=== PATIENT | male | born 1930 | race Caucasian/White ===

== ENCOUNTER 2017-11-15 09:12 | Inpatient (IN) | payer MEDICARE, OTHER ==
--- NOTE | 2017-11-15 10:25 | ER Document Report ---
ED General - General Chief Complaint: Altered Mental Status Stated Complaint: ALTERED MENTAL STATUS Mode of Arrival: Medic Information source: Relative TRAVEL OUTSIDE OF THE [place] IN LAST 30 DAYS: No - HPI Notes: 87-year-old male with a history of hypertension, hyperlipidemia, prostate cancer incontinence depression presents to the ED via EMS for AMS via EMS with his son that son noticed this morning when woke up about a month. Son states that patient was unable to speak when he went into the room to see how his father is doing. Denies any travel, food or medications.States that patient was completely awake and alert and oriented yesterday speaking about sports. Son is not really sure about patient's medical history. Denies any recent falls , medications or foods. - Related Data Allergies/Adverse Reactions: No Known Allergies Allergy (Unverified 07/14/11 13:49) Past Medical History - Social History Smoking Status: Never Smoker Chew tobacco use (# tins/day): No Frequency of alcohol use: Occasional Drug Abuse: None Family History: Reviewed & Not Pertinent Patient has suicidal ideation: No Patient has homicidal ideation: No - Past Medical History Cardiac Medical History: Reports: Hx Hypertension Denies: Hx Coronary Artery Disease, Hx Heart Attack Pulmonary Medical History: Denies: Hx Asthma, Hx Bronchitis, Hx COPD, Hx Pneumonia Neurological Medical History: Denies: Hx Cerebrovascular Accident, Hx Seizures Renal/ Medical History: Denies: Hx Peritoneal Dialysis Musculoskeletal Medical History: 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 HEAD: Atraumatic, normocephalic. EYES: Pupils equal round and reactive to light, sclera anicteric, conjunctiva are normal. ENT: Nares patent, oropharynx clear without exudates. Moist mucous membranes. NECK: Normal range of motion, supple without lymphadenopathy LUNGS: Breath sounds clear to auscultation bilaterally and equal. No wheezes rales or rhonchi. HEART: Regular rate and rhythm without murmurs ABDOMEN: Soft, nontender, nondistended abdomen. No guarding, no rebound. No masses appreciated. Musculoskeletal: Normal range of motion, no pitting or edema. No cyanosis. NEUROLOGICAL: GCS 11. see neurological note PSYCH: Normal mood, normal affect. SKIN: Warm, Dry, normal turgor, no rashes or lesions noted. - Neurological Neuro grossly intact: Yes Cognition: Confused, Inattentive Orientation: Disoriented to person, Disoriented to place, Disoriented to time, Disoriented to events Sunny Coma Scale Eye Opening: Spontaneous Sunny Coma Scale Verbal: Incomprehensible Meeker Coma Scale Motor: Localizes to Pain Sunny Coma Scale Total: 11 Speech: Receptive aphasia Cerebellar coordination: Other - unable to follow commands Additional motor exam normals: Equal sweep molder Babinski reflex: Normal (flexor plantar) Sensory: Other - unable to communicate to me. Ventilator Specialist + 2 equal bilaterally in BUE when this provider welder/fabricator hands. Course - Re-evaluation Re-evalutation: Afebrile, vitals stable and altered 87-year-old male brought in by EMS with a GCS of 11. Temp is 97.8 patient unable to give history due to GCS, son is a poor historian. Ct head did show chronic changes of atrophy and microvascular ischemia, no acute stroke. Patient garbling, not making sense, will open eyes but is unable to follow any commands. Chest x-ray shows chronic changes, no acute findings. Patient pulling at lines and trying to get out of bed. CBC leukocytosis of the 11.3 which is elevated from the last 60. Creatinine is 1.37 which is elevated slightly from when he was seen here back in 2016 as well. EKG non-STEMI lactic is 9.3 troponin 0 0.016. Urinalysis negative for acute UTI. CK-MB is 1.39. 4048-[id number]-fkex activity witnessed by nurse and this provider at the very end, lasted approx 15 seconds where the patient was staring off and slight tremoring, resolved completely thereafter. No tonic- clonic jerking. Airway patent. Dr. Kaveh Reina, supervising ED attending, at bedside for bedside consult at the same time this provider came into room. Dr. Reina advised to start pt on 1500 mg IV as well as giving 1mg of Ativan IV. will obtain MRI of brain. daughter arrived at bedside who knows patient's history better at 1100. Daughter states that patient has had these "spells" over the last year and a half, states she thinks four "spells" in total. Reports where patient has these spells, he is altered all day, does not know anyone and his change in logical status can be altered for at least day and a half, but is never been "this bad" per the daughter. Patient was evaluated by his primary care provider after having a spell in the last 6 months, in which, per the daughter, the patient then received a CPAP machine for sleep apnea by his PCP. Daughter states that the primary care provider felt that this is what was causing his "spells". Patient has never been seen or evaluated by a neurologist. no history of dementia, Alzheimer's. MRI of brain without contrast showed atrophy and chronic microvascular ischemic changes, otherwise is a normal MRI of the brain. Consulted with hospitalist, Dr. Abhishek Cole, regarding seizure-like activity with altered mental status without any remarkable laboratory or diagnostic findings and is negative for acute stroke. Low suspicion for acute glaucoma, temporal arteritis, meningitis, intracranial hemorrhage, acute coronary syndrome, PE or ischemic stroke. patient has never been evaluated by seizure-like activity while he was in the emergency room, will admit for further evaluation to the [facility] to the medical service with consult to neurology. Patient's family was agreeable with this plan of care, verbalized understanding of this plan of care. All questions and concerns answered by this provider. - Vital Signs Vital signs: Temp Pulse Resp BP Pulse Ox 70 18 137/64 H 99 11/15/17 12:22 11/15/17 14:01 11/15/17 14:01 11/15/17 14:01 - Laboratory Result Diagrams: 11/15/17 10:46 11/15/17 10:46 Laboratory results interpreted by me: 11/15/17 11/15/17 11/15/17 10:46 10:46 11:15 WBC 11.1 H RBC 2.85 L Hgb 9.5 L Hct 27.4 L Seg Neutrophils % 84.5 H Lymphocytes % 5.8 L Absolute Neutrophils 9.4 H BUN 32 H Creatinine 1.37 H Est GFR ( Amer) 59 L Est GFR (Non-Af Amer) 49 L Calcium 8.0 L Urine Blood SMALL H Urine Urobilinogen 2.0 H Discharge - Discharge Clinical Impression: Altered mental status, Seizure-like activity Condition: Stable Disposition: ADMITTED INPATIENT Admitting Provider: Hospitalist - Dr. Abhishek Cole Unit Admitted: IMCU Referrals: OSCAR TAVAREZ MD [Primary Care Provider] - Follow up as needed
--- NOTE | 2017-11-15 10:26 | RADIOLOGY REPORT (SQ) ---
EXAM DESCRIPTION: CT HEAD WITHOUT COMPLETED DATE/TIME: 11/15/2017 10:09 am REASON FOR STUDY: AMS, sudden onset COMPARISON: None. TECHNIQUE: Axial images acquired through the brain without intravenous contrast. Images reviewed wi th bone, brain and subdural windows. Additional sagittal and coronal reconstructions were generated. Images stored on PACS. All CT scanners at this facility use dose modulation, iterative reconstruction, and/or weight based d osing when appropriate to reduce radiation dose to as low as reasonably achievable (ALARA). [facility]: Dose Right [facility]: CareDose [facility]: Dose Right [facility]: Teradose 4D [facility]: Drik RADIATION DOSE: CT Rad equipment meets quality standard of care and radiation dose reduction techniq ues were employed. CTDIvol: 53.2 mGy. DLP: 1017 mGy-cm.mGy. LIMITATIONS: Motion. FINDINGS: VENTRICLES: Prominent. CEREBRUM: No masses. No hemorrhage. No midline shift. Areas of low density in the white matter mos t likely due to chronic micro-vascular ischemic change. No evidence for acute infarction. CEREBELLUM: No masses. No hemorrhage. Dystrophic calcification in the maia. No evidence for acute infarction. EXTRAAXIAL SPACES: Age-related involutional change. No fluid collections. No masses. ORBITS AND GLOBE: No intra- or extraconal masses. Normal contour of globe without masses. CALVARIUM: No fracture. PARANASAL SINUSES: No fluid or mucosal thickening. SOFT TISSUES: No mass or hematoma. OTHER: No other significant finding. IMPRESSION: CHRONIC CHANGES OF ATROPHY AND MICROVASCULAR ISCHEMIA. NO ACUTE PROCESS. EVIDENCE OF ACUTE STROKE: NO. TECHNICAL DOCUMENTATION: JOB ID: [id number] Quality ID # [id number]: Final reports with documentation of one or more dose reduction techniques (e.g., Au tomated exposure control, adjustment of the mA and/or kV according to patient size, use of iterative reconstruction technique) 2010 [employer]- All Rights Reserved Reading location - IP/workstation name: [email or web address]
--- NOTE | 2017-11-15 10:28 | RADIOLOGY REPORT (SQ) ---
EXAM DESCRIPTION: CHEST SINGLE VIEW COMPLETED DATE/TIME: 11/15/2017 10:11 am REASON FOR STUDY: AMS, sudden onset COMPARISON: CT chest, 07/18/2015 EXAM PARAMETERS: NUMBER OF VIEWS: One view. TECHNIQUE: Single frontal radiographic view of the chest acquired. RADIATION DOSE: NA LIMITATIONS: None. FINDINGS: LUNGS AND PLEURA: Faint reticulonodular change with greatest involve right upper lung zone that was noted on previous CT of the chest. No new infiltrates. No pleural effusions. MEDIASTINUM AND HILAR STRUCTURES: Calcified nodes. HEART AND VASCULAR STRUCTURES: Heart normal in size. Normal vasculature. BONES: No acute findings. HARDWARE: None in the chest. OTHER: No other significant finding. IMPRESSION: No acute findings. Chronic faint reticulonodular change -greatest involvement right upp er lung zone. TECHNICAL DOCUMENTATION: JOB ID: [id number] [employer]- All Rights Reserved Reading location - IP/workstation name: [email or web address]
[2017-11-15] MEDS ORDERED: LORAZEPAM INJ 2 MG/1 ML VIAL ONE (10:57)
[2017-11-15] MEDS ORDERED: LORAZEPAM INJ 2 MG/1 ML VIAL IV ONE (11:05)
[2017-11-15 11:23] LABS: ABSOLUTE LYMPHOCYTES (AUTO) 0.6 10^3/uL (0.5-4.7); ABSOLUTE NEUT (AUTO) 9.4 10^3/uL (1.7-8.2); BASOPHILS % (AUTO) 0.2 % (0-2); EOSINOPHILS % (AUTO) 0.1 % (0-6); HEMATOCRIT 27.4 % (37.9-51.0); HEMOGLOBIN 9.5 g/dL (13.5-17.0); LYMPHOCYTES % (AUTO) 5.8 % (13-45); MEAN CORPUSCULAR HEMOGLOBIN 33.3 pg (27.0-33.4); MEAN CORPUSCULAR HGB CONC 34.5 g/dL (32.0-36.0); MEAN CORPUSCULAR VOLUME 96 fl (80-97); MONOCYTES % (AUTO) 9.4 % (3-13); PLATELET COUNT 261 10^3/uL (150-450); RED BLOOD COUNT 2.85 10^6/uL (4.35-5.55); RED CELL DISTRIBUTION WIDTH 13.6 % (11.5-14.0); SEGMENTED NEUTROPHILS % (AUTO) 84.5 % (42-78); TOTAL CELLS COUNTED % (AUTO) 100 %; WHITE BLOOD COUNT 11.1 10^3/uL (4.0-10.5)
[2017-11-15 11:28] LABS: INTERNATIONAL RATION (INR) 1.05; PROTHROMBIN TIME 14.3 SEC (11.4-15.4)
[2017-11-15 11:29] LABS: PARTIAL THROMBOPLASTIN TIME 29.9 SEC (23.5-35.8)
[2017-11-15 11:35] LABS: ALANINE AMINOTRANSFERASE 22 U/L (21-72); ALBUMIN 3.6 g/dL (3.5-5.0); ALKALINE PHOSPHATASE 82 U/L (38-126); ANION GAP 13 (5-19); ASPARTATE AMINO TRANSFERASE 28 U/L (17-59); BILIRUBIN,DIRECT 0.4 mg/dL (0.0-0.4); BILIRUBIN,TOTAL 0.5 mg/dL (0.2-1.3); BLOOD UREA NITROGEN 32 mg/dL (7-20); CARBON DIOXIDE 22 mmol/L (22-30); CHLORIDE 107 mmol/L (98-107); CREATINE KINASE 99 U/L (55-170); GLUCOSE 92 mg/dL (75-110); POTASSIUM 4.8 mmol/L (3.6-5.0); SODIUM 141.5 mmol/L (137-145); TOTAL PROTEIN 6.6 g/dL (6.3-8.2)
[2017-11-15 11:47] LABS: CREATINE KINASE MB 1.39 ng/mL (<4.55); TROPONIN I 0.016 ng/mL
[2017-11-15 11:49] LABS: APPEARANCE,URINE CLEAR; BILIRUBIN,URINE NEGATIVE (NEGATIVE); COLOR,URINE YELLOW; GLUCOSE, URINE NEGATIVE (NEGATIVE); KETONES,URINE NEGATIVE (NEGATIVE); LEUKOCYTE ESTERASE,URINE NEGATIVE (NEGATIVE); NITRITE,URINE NEGATIVE (NEGATIVE); PROTEIN,URINE NEGATIVE (NEGATIVE); URINE SPECIFIC GRAVITY 1.013
[2017-11-15 12:33] LABS: VENOUS BLOOD BASE EXCESS -4.4 mmol/L; VENOUS BLOOD HCO3 20.2 mmol/L (20-32); VENOUS BLOOD PCO2 35.1 mmHg (35-63); VENOUS BLOOD PH 7.38 (7.30-7.42)
[2017-11-15] MEDS ORDERED: LEVETIRACETAM 1500 MG/NACL-ISO 1,500 MG/100 ML RTUPB IV ONE (13:50)
--- NOTE | 2017-11-15 13:53 | EKG REPORT ---
SEVERITY:- ABNORMAL ECG - SINUS RHYTHM VENTRICULAR TRIGEMINY LEFT ANTERIOR FASCICULAR BLOCK : Confirmed by: David Dooley MD 15-Nov-2017 13:52:49
--- NOTE | 2017-11-15 15:41 | RADIOLOGY REPORT (SQ) ---
EXAM DESCRIPTION: MRI HEAD WITHOUT COMPLETED DATE/TIME: 11/15/2017 3:29 pm REASON FOR STUDY: AMS COMPARISON: None. TECHNIQUE: Multiplanar imaging includes non-contrasted T1, T2, FLAIR, and diffusion with ADC map seq uences. Images stored on PACS. LIMITATIONS: Excessive motion. Several sequences were repeated. FINDINGS: ANATOMY: No anomalies. Normal vascular flow voids. Pituitary fossa normal. CSF SPACES: Atrophy induced prominence of ventricles and CSF spaces. CEREBRUM: High signal intensity lesions scattered throughout the white matter on FLAIR imaging with d istribution suggesting micro-vascular ischemic changes. No evidence of hemorrhage, mass, or extraaxi al fluid collection. POSTERIOR FOSSA: No signal alteration. No hemorrhage. No edema, masses or mass effect. Internal odalis tory canals, cerebello-pontine angles, mastoids normal. DIFFUSION IMAGING: Negative for acute or sub-acute infarction. ORBITS: No masses. Globes normal. PARANASAL SINUSES: No fluid levels. Mucosa normal. OTHER: No other significant finding. IMPRESSION: ATROPHY AND CHRONIC MICRO-VASCULAR ISCHEMIC CHANGES. OTHERWISE NORMAL MRI OF THE BRAIN W ITHOUT INTRAVENOUS GADOLINIUM CONTRAST. EVIDENCE OF ACUTE STROKE: NO. TECHNICAL DOCUMENTATION: JOB ID: [id number] [employer]- All Rights Reserved Reading location - IP/workstation name: [email or web address]
[2017-11-15] MEDS ORDERED: DEXTROSE 40% GEL 15 GM TUBE PO PRN ×2 (17:48)
[2017-11-15] MEDS ORDERED: DEXTROSE 50%-WATER 25 GM/50 ML DISP.SYRIN IV PRN ×2 (17:48)
[2017-11-15] MEDS ORDERED: GLUCAGON,HUMAN RECOMB 1 MG INJ SUBCUT PRN (17:48)
[2017-11-15 19:31] LABS: URINE AMPHETAMINES SCREEN NEGATIVE; URINE BARBITURATES SCREEN NEGATIVE; URINE BENZODIAZEPINES SCREEN NEGATIVE; URINE COCAINE SCREEN NEGATIVE; URINE MARIJUANA (THC) SCREEN NEGATIVE; URINE METHADONE SCREEN NEGATIVE; URINE PHENCYCLIDINE SCREEN NEGATIVE
[2017-11-15] MEDS ORDERED: NORMAL SALINE 1000 ML 1,000 ML IV PRN (20:15)
--- NOTE | 2017-11-15 20:44 | PDOC H&P ---
History of Present Illness Admission Date/PCP: 11/15/17 17:44 OSCAR TAVAREZ MD Patient complains of: confusion History of Present Illness: BETTY KRUGER is a 87 year old male with a past medical history of depression, hypertension, hyperlipidemia and remote history of early prostate cancer status post resection who was brought in because of confusion. Family is with patient in the room. Patient lives alone but does have a caregiver who visits him every day. Per patient's family members they have been in contact with the patient and he has been apparently finding in the said that they talk to him last night and patient did not have any acute complaints. Patient was coherent last night. However this morning, when the caregiver went to check on the patient he was noted to be lethargic and confused. He was barely arousable. Patient was brought into the emergency room. He was also noted to be a little lethargic and when patient was aroused he was confused and was agitated. Patient was given 1 dose of 1 mg of Ativan because of the agitation. Per patient's family patient was not able to recognize them. Family and probation and parole officer denies that there was any concern for carbon monoxide poisoning or wood-burning at home. In the ER, patient reportedly had questionable seizure-like activity. Per patient's daughter, she says that she did to an engorged tick from the patient's neck 3-4 weeks ago. However in the interim, patient did not report a complain of any fever, chills, body malaise and has been on his baseline. Past Medical History Cardiac Medical History: Reports: Hypertension Denies: Coronary Artery Disease, Myocardial Infarction Pulmonary Medical History: Denies: Asthma, Bronchitis, Chronic Obstructive Pulmonary Disease (COPD), Pneumonia Neurological Medical History: Denies: Seizures Musculoskeltal Medical History: Reports: Arthritis - Rheumatoid in ankles, feet , hand, back Hematology: Denies: Anemia Past Surgical History Past Surgical History: Denies: Pacemaker Social History Smoking Status: Never Smoker Family History Family History: Reviewed & Not Pertinent Medication/Allergy Home Medications: Amlodipine Besylate [Norvasc 5 mg Tablet] 5 mg PO BID 11/15/17 Atorvastatin Calcium [Lipitor 40 mg Tablet] 40 mg PO QHS 11/15/17 Duloxetine HCl [Cymbalta] 60 mg PO DAILY 11/15/17 Levothyroxine Sodium [Synthroid 0.075 mg Tablet] 0.075 mg PO Q6AM 11/15/17 Megestrol Acetate 20 ml PO DAILY 11/15/17 Morphine Sulfate [Morphine Sulfate ER] 15 mg PO Q12 11/15/17 Oxybutynin Chloride [Oxybutynin Chloride ER] 15 mg PO DAILY 11/15/17 Sertraline HCl [Zoloft 50 mg Tablet] 50 mg PO BID 11/15/17 Allergies/Adverse Reactions: No Known Allergies Allergy (Unverified 07/14/11 13:49) Review of Systems ROS unobtainable: Due to mental status Physical Exam Vital Signs: Temp Pulse Resp BP Pulse Ox 99.3 F 70 19 155/73 H 96 11/15/17 19:00 11/15/17 12:22 11/15/17 19:01 11/15/17 19:01 11/15/17 19:01 General appearance: PRESENT: no acute distress, other - Patient is arousable. He is not in distress. He does not open his eyes. He does not respond to voices and verbalizes incomprehensible words. He does not appear to be in pain. Head exam: PRESENT: atraumatic, normocephalic Eye exam: PRESENT: conjunctiva pink, PERRLA. ABSENT: scleral icterus Neck exam: ABSENT: carotid bruit, JVD, lymphadenopathy, thyromegaly Respiratory exam: PRESENT: clear to auscultation edson. ABSENT: rales, rhonchi, wheezes Cardiovascular exam: PRESENT: RRR. ABSENT: diastolic murmur, rubs, systolic murmur GI/Abdominal exam: PRESENT: normal bowel sounds, soft. ABSENT: distended, guarding, mass, organolmegaly, rebound, tenderness Rectal exam: PRESENT: deferred Neurological exam: PRESENT: other - Patient is arousable. He is not in distress. He does not open his eyes. Right pupil is briskly reactive whereas the left is minimally reactive. Patient did have a left eye cataract surgery per family. He does not respond to voices and verbalizes incomprehensible words. He does not appear to be in pain. There is no apparent weakness on the extremities. Patient withdraws to pain equally on both extremities. There is no nuchal rigidity. No Kernig's or Brudzinski signs. Results Laboratory Results: 11/15/17 19:44 Troponin I 0.039 Impressions: Chest X-Ray 11/15/17 09:55 IMPRESSION: No acute findings. Chronic faint reticulonodular change -greatest involvement right upper lung zone. Head CT 11/15/17 09:55 IMPRESSION: CHRONIC CHANGES OF ATROPHY AND MICROVASCULAR ISCHEMIA. NO ACUTE PROCESS. EVIDENCE OF ACUTE STROKE: NO. Head MRI 11/15/17 11:06 IMPRESSION: ATROPHY AND CHRONIC MICRO-VASCULAR ISCHEMIC CHANGES. OTHERWISE NORMAL MRI OF THE BRAIN WITHOUT INTRAVENOUS GADOLINIUM CONTRAST. EVIDENCE OF ACUTE STROKE: NO. Assessment & Plan - Diagnosis (1) Acute encephalopathy Is this a current diagnosis for this admission?: Yes Plan: Patient is presenting with acute encephalopathy as reportedly he was apparently fine last night. CT of the brain is unremarkable MRI of the brain was also pursued and this is unremarkable with no signs of bleed or stroke. Differentials include infectious cause versus seizure related confusion. Meningitis is very unlikely due to the acuity of presentation. However we will go ahead and empirically give patient vancomycin and ceftriaxone. Will check a UDS. Patient's family did report that they were able to remove an engorged tick from the patient's next 3 week's ago. However, it is extremely unlikely for a tickborne disease to cause this type of acute encephalopathy without prior signs and symptoms in the interim. We will go ahead and order an EEG. We will also proceed with a lumbar puncture to further evaluate the cause of patient's encephalopathy. - Time Time Spent: 50 to 70 Minutes
[2017-11-15] MEDS ORDERED: CEFTRIAXONE 2 GM/D5W RTU 2 GM/50 ML RTUPB IV SCH (21:00)
[2017-11-15] MEDS: HEPARIN SOD (PORCINE) 5,000 UNIT/ML 1 ML SYRINGE SUBCUT SCH (21:56)
[2017-11-15] MEDS ORDERED: VANCOMYCIN HCL INJ 1000 MG VIAL IV ONE (22:00)
[2017-11-15] MEDS ORDERED: NALOXONE HCL INJ/PF 0.4 MG/1 ML SDV IV ONE (22:00)
[2017-11-15] MEDS: CEFTRIAXONE SODIUM 2,000 MG in NORMAL SALINE 100 ML IV SCH (22:05)
[2017-11-16 07:42] LABS: ABSOLUTE LYMPHOCYTES (AUTO) 0.8 10^3/uL (0.5-4.7); ABSOLUTE MONOCYTES (AUTO) 0.8 10^3/uL (0.1-1.4); ABSOLUTE NEUT (AUTO) 6.7 10^3/uL (1.7-8.2); BASOPHILS % (AUTO) 0.4 % (0-2); EOSINOPHILS % (AUTO) 0.2 % (0-6); HEMATOCRIT 29.2 % (37.9-51.0); HEMOGLOBIN 10.4 g/dL (13.5-17.0); LYMPHOCYTES % (AUTO) 9.7 % (13-45); MEAN CORPUSCULAR HEMOGLOBIN 34.2 pg (27.0-33.4); MEAN CORPUSCULAR HGB CONC 35.5 g/dL (32.0-36.0); MEAN CORPUSCULAR VOLUME 96 fl (80-97); MONOCYTES % (AUTO) 9.1 % (3-13); PLATELET COUNT 279 10^3/uL (150-450); RED BLOOD COUNT 3.03 10^6/uL (4.35-5.55); RED CELL DISTRIBUTION WIDTH 13.4 % (11.5-14.0); SEGMENTED NEUTROPHILS % (AUTO) 80.6 % (42-78); TOTAL CELLS COUNTED % (AUTO) 100 %; WHITE BLOOD COUNT 8.3 10^3/uL (4.0-10.5)
[2017-11-16 07:53] LABS: ANION GAP 14 (5-19); BLOOD UREA NITROGEN 25 mg/dL (7-20); CALCIUM 8.5 mg/dL (8.4-10.2); CARBON DIOXIDE 20 mmol/L (22-30); CHLORIDE 107 mmol/L (98-107); GLUCOSE 79 mg/dL (75-110)
[2017-11-16 08:06] LABS: POTASSIUM 3.8 mmol/L (3.6-5.0)
[2017-11-16] MEDS: HEPARIN SOD (PORCINE) 5,000 UNIT/ML 1 ML SYRINGE SUBCUT SCH ×3 (08:43→21:42)
[2017-11-16 12:15] LABS: GLUCOSE,CSF 48 mg/dL (40-70); PROTEIN,CSF 76 mg/dL (12-60)
[2017-11-16 12:16] LABS: CSF TUBE NUMBER 2
[2017-11-16 12:17] LABS: COLOR TUBE 1 COLORLESS; COLOR TUBE 2 COLORLESS; COLOR TUBE 3 STRAW
[2017-11-16 12:18] LABS: APPEARANCE TUBE 1 CLEAR; APPEARANCE TUBE 2 CLEAR; APPEARANCE TUBE 3 SLIGHTLY HAZY; APPEARANCE TUBE 4 SLIGHTLY HAZY; COLOR TUBE 4 STRAW
[2017-11-16 12:19] LABS: CSF TOTAL VOLUME 3.5 CC; RED BLOOD CELL,CSF 160 /uL (0-10); VOLUME TUBE 1 0.5 CC
[2017-11-16 12:20] LABS: WHITE BLOOD CELL,CSF 0 /uL (0-5)
--- NOTE | 2017-11-16 13:03 | RADIOLOGY REPORT (SQ) ---
EXAM DESCRIPTION: FLUORO/NEEDLE PLACEMENT/SPINE; LUMBAR PUNCTURE COMPLETED DATE/TIME: 11/16/2017 11:37 am REASON FOR STUDY: AMS; ac enceph COMPARISON: None. FLUOROSCOPY TIME: 35 seconds 2 digital fluoro images saved to PACS. TECHNIQUE: Fluoroscopic guided lumbar puncture. LIMITATIONS: None. PROCEDURE: After written consent and assessment were obtained, the patient was brought into the fluo roscopy room and placed prone on the table. The patient's lower back was prepped in a sterile fashio n and an entry site was selected under live fluoroscopic guidance. The entry site was anesthetized wi th 3 mL of 1% lidocaine. A 22 gauge needle was advanced through the skin and into the thecal sac at t he right paracentral L2-3 level. After approximately 3.5 ml was drained, the needle was removed and a sterile bandage was placed of the site. Specimens were sent to the lab for testing. A fluoroscopi c spot image was saved to PACS confirming level access. FINDINGS: Clear cerebrospinal fluid, normal opening pressure. CSF studies are pending IMPRESSION: Lumbar puncture under fluoroscopy. No immediate complication. COMMENT: Patient medication list reviewed: Yes- Quality ID# 130:Eligible professional attests to doc umenting in the medical record they obtained, updated, or reviewed the patient's current medications. . Quality ID 145: Final reports for procedures using fluoroscopy that document radiation exposure tamara carie, or exposure time and number of fluorographic images (if radiation exposure indices are not avail able) TECHNICAL DOCUMENTATION: JOB ID: [id number] [employer]- All Rights Reserved Reading location - IP/workstation name: [facility]
--- NOTE | 2017-11-16 13:03 | RADIOLOGY REPORT (SQ) ---
EXAM DESCRIPTION: FLUORO/NEEDLE PLACEMENT/SPINE; LUMBAR PUNCTURE COMPLETED DATE/TIME: 11/16/2017 11:37 am REASON FOR STUDY: AMS; ac enceph COMPARISON: None. FLUOROSCOPY TIME: 35 seconds 2 digital fluoro images saved to PACS. TECHNIQUE: Fluoroscopic guided lumbar puncture. LIMITATIONS: None. PROCEDURE: After written consent and assessment were obtained, the patient was brought into the fluo roscopy room and placed prone on the table. The patient's lower back was prepped in a sterile fashio n and an entry site was selected under live fluoroscopic guidance. The entry site was anesthetized wi th 3 mL of 1% lidocaine. A 22 gauge needle was advanced through the skin and into the thecal sac at t he right paracentral L2-3 level. After approximately 3.5 ml was drained, the needle was removed and a sterile bandage was placed of the site. Specimens were sent to the lab for testing. A fluoroscopi c spot image was saved to PACS confirming level access. FINDINGS: Clear cerebrospinal fluid, normal opening pressure. CSF studies are pending IMPRESSION: Lumbar puncture under fluoroscopy. No immediate complication. COMMENT: Patient medication list reviewed: Yes- Quality ID# 130:Eligible professional attests to doc umenting in the medical record they obtained, updated, or reviewed the patient's current medications. . Quality ID 145: Final reports for procedures using fluoroscopy that document radiation exposure tamara carie, or exposure time and number of fluorographic images (if radiation exposure indices are not avail able) TECHNICAL DOCUMENTATION: JOB ID: [id number] [employer]- All Rights Reserved Reading location - IP/workstation name: [facility]
--- NOTE | 2017-11-16 13:10 | EKG REPORT ---
SEVERITY:- ABNORMAL ECG - SINUS OR ECTOPIC ATRIAL RHYTHM ATRIAL PREMATURE COMPLEX LEFT ANTERIOR FASCICULAR BLOCK BORDERLINE PROLONGED QT INTERVAL : Confirmed by: David Dooley MD 16-Nov-2017 13:10:19
[2017-11-16] MEDS ORDERED: ACETAMINOPHEN 325 MG TABLET PO PRN (16:28)
--- NOTE | 2017-11-16 16:33 | PDOC PROGRESS REPORT ---
Subjective Progress Note for:: 11/16/17 Subjective:: Patient was admitted for acute encephalopathy. No acute event overnight. Patient was more responsive this morning. He did get one dose of Narcan. No fever or chills. 4 PM: Patient was awake and alert. He is oriented to person and is able to recognize family. Denies acute complaints. Reason For Visit: ACUTE ENCEPHALOPATHY Physical Exam Vital Signs: Temp Pulse Resp BP Pulse Ox 99.3 F 74 20 153/76 H 94 11/15/17 19:00 11/16/17 14:00 11/16/17 14:00 11/16/17 14:00 11/16/17 14:00 Intake & Output 11/15/17 11/16/17 11/17/17 06:59 06:59 06:59 Intake Total 100 Balance 100 General appearance: PRESENT: no acute distress, other - Responds with incomprehensible words when Aroused. Head exam: PRESENT: atraumatic, normocephalic Eye exam: PRESENT: conjunctiva pink, EOMI, PERRLA. ABSENT: scleral icterus Neck exam: ABSENT: carotid bruit, JVD, lymphadenopathy, thyromegaly Respiratory exam: PRESENT: clear to auscultation edson. ABSENT: rales, rhonchi, wheezes Cardiovascular exam: PRESENT: RRR. ABSENT: diastolic murmur, rubs, systolic murmur Pulses: PRESENT: normal dorsalis pedis pul GI/Abdominal exam: PRESENT: normal bowel sounds, soft. ABSENT: distended, guarding, mass, organolmegaly, rebound, tenderness Rectal exam: PRESENT: deferred Neurological exam: PRESENT: other - Responds with incomprehensible words when Aroused. He is not in distress. He does not open his eyes. Right pupil is briskly reactive whereas the left is minimally reactive. Patient did have a left eye cataract surgery per family. There is no apparent weakness on the extremities. Patient withdraws to pain equally on both extremities. There is no nuchal rigidity. No Kernig's or Brudzinski signs. Results Laboratory Results: 11/16/17 06:54 11/16/17 06:54 11/16/17 11/16/17 11/16/17 06:54 06:54 11:15 WBC 8.3 RBC 3.03 L Hgb 10.4 L Hct 29.2 L MCV 96 MCH 34.2 H MCHC 35.5 RDW 13.4 Plt Count 279 Seg Neutrophils % 80.6 H Lymphocytes % 9.7 L Monocytes % 9.1 Eosinophils % 0.2 Basophils % 0.4 Absolute Neutrophils 6.7 Absolute Lymphocytes 0.8 Absolute Monocytes 0.8 Absolute Eosinophils 0.0 Absolute Basophils 0.0 Sodium 141.0 Potassium 3.8 D Chloride 107 Carbon Dioxide 20 L Anion Gap 14 BUN 25 H Creatinine 1.12 Est GFR ( Amer) > 60 Est GFR (Non-Af Amer) > 60 Glucose 79 Calcium 8.5 Fluid Tube Number 2 CSF Volume 3.5 CSF WBC 0 CSF RBC 160 CSF Color (1) COLORLESS CSF Appearance (1) CLEAR CSF Color (2) COLORLESS CSF Appearance (2) CLEAR CSF Color (3) STRAW CSF Appearance (3) SLIGHTLY HAZY CSF Color (4) STRAW CSF Appearance (4) SLIGHTLY HAZY CSF Glucose CSF Total Protein 11/16/17 11:15 WBC RBC Hgb Hct MCV MCH MCHC RDW Plt Count Seg Neutrophils % Lymphocytes % Monocytes % Eosinophils % Basophils % Absolute Neutrophils Absolute Lymphocytes Absolute Monocytes Absolute Eosinophils Absolute Basophils Sodium Potassium Chloride Carbon Dioxide Anion Gap BUN Creatinine Est GFR ( Amer) Est GFR (Non-Af Amer) Glucose Calcium Fluid Tube Number CSF Volume CSF WBC CSF RBC CSF Color (1) CSF Appearance (1) CSF Color (2) CSF Appearance (2) CSF Color (3) CSF Appearance (3) CSF Color (4) CSF Appearance (4) CSF Glucose 48 CSF Total Protein 76 H 11/15/17 11/16/17 19:44 04:55 Troponin I 0.039 0.084 Impressions: Chest X-Ray 11/15/17 09:55 IMPRESSION: No acute findings. Chronic faint reticulonodular change -greatest involvement right upper lung zone. Head CT 11/15/17 09:55 IMPRESSION: CHRONIC CHANGES OF ATROPHY AND MICROVASCULAR ISCHEMIA. NO ACUTE PROCESS. EVIDENCE OF ACUTE STROKE: NO. Head MRI 11/15/17 11:06 IMPRESSION: ATROPHY AND CHRONIC MICRO-VASCULAR ISCHEMIC CHANGES. OTHERWISE NORMAL MRI OF THE BRAIN WITHOUT INTRAVENOUS GADOLINIUM CONTRAST. EVIDENCE OF ACUTE STROKE: NO. Guidance Fluoroscopy 11/16/17 00:00 IMPRESSION: Lumbar puncture under fluoroscopy. No immediate complication. Lumbar Puncture 11/16/17 00:00 IMPRESSION: Lumbar puncture under fluoroscopy. No immediate complication. Assessment & Plan - Diagnosis (1) Acute encephalopathy Is this a current diagnosis for this admission?: Yes Plan: Patient appears to be more responsive today. However he is still not opening his eyes spontaneously. Will await EEG report. MRI was negative. UDS was only positive for opiates. Initial CSF analysis results are unremarkable. No concern for meningitis or encephalitis. His encephalopathy is consistent with medication effect from morphine. - Time Time Spent with patient: 25-34 minutes Anticipated discharge: Home Within: within 24 hours
[2017-11-16] MEDS: DEXTROSE 5%-NORMAL SALINE 1,000 ML IV PRN (17:38)
[2017-11-16] MEDS ORDERED: NYSTATIN TOPICAL POWDER 15 GM TP PRN (17:59)
[2017-11-16] MEDS ORDERED: GABAPENTIN 100 MG CAPSULE PO ONE (20:00)
[2017-11-16] MEDS: CEFTRIAXONE SODIUM 2,000 MG in NORMAL SALINE 100 ML IV SCH (21:43)
[2017-11-17] MEDS: HEPARIN SOD (PORCINE) 5,000 UNIT/ML 1 ML SYRINGE SUBCUT SCH (05:29)
[2017-11-17] MEDS: DEXTROSE 5%-NORMAL SALINE 1,000 ML IV PRN (05:29)
--- NOTE | 2017-11-17 08:20 | EEG PRO FEE REPORT ---
EEG INTERPRETATION PATIENT NAME: BETTY KRUGER ROOM#: [id number] ORDER#: [id number] DATE OF STUDY: 11/16/2017 : 1930 REFERRING MD: BAN CAMPOVERDE M.D. MEDICATIONS: Ceftriaxone, Glucagon, Heparin History This is an 87 year old right handed man with a history of hypertension, anterior cervical fusion with plate, prostate cancer, arthritis, melanoma, admitted with altered mental status. This EEG was requested for possible seizures. EEG Interpretation This EEG was recorded in the brief wake but mostly drowsy states. The awake EEG is characterized by a well organized background with a moderately developed and reactive to passive eye opening and closing by the development technologist of a posterior dominant rhythm of 9 Hz. The remainder of the background consisted of mainly alpha with some theta and some delta frequencies noted during periods of arousal with mild sharp contours but without definite epileptiform abnormalities or evolving patterns. Drowsiness is characterized by slowing of the background rhythms. Photic stimulation resulted in a good driving response. There were no definite epileptiform abnormalities noted. The EKG showed an irregular rhythm with frequent PVCs. EEG Classification 1. Mild generalized background slowing 2. EKG irregular rhythm with PVCs EEG Impression This EEG is mildly abnormal. There was brief wakefulness only noted with mild slowing of the background. This is associated with a mild diffuse cerebral dysfunction. The EKG may require further investigation. Clinical correlation is recommended. INTERPRETING PHYSICIAN: RULA YORK M.D. /: BITA TT: [id number] ID: [id number] /: [id number] TD: [id number] JOB: [id number] cc:Lesly KHAN M.D. REX EDWARD RODA, M.D. > MTDD
[2017-11-17] MEDS ORDERED: NYSTATIN TOPICAL POWDER 15 GM TP SCH (10:00)
--- NOTE | 2017-11-17 10:28 | Physician Advisory Note ---
Physician Advisor ProgressNote .: Pursuant to the plan for [facility], I have reviewed the medical record for this patient. Physician Advisor Statement: Pt has BMI 15.7, chronically takes Synthroid, Cymbalta, Zoloft, Morphine ER, & Megace. MRI shows white matter small vessel ischemic changes. Please consider documenting, if you agree: 1. "hypothyroidism" 2. "opioid dependence" 3. "atherosclerotic cerebrovascular disease" 4. "depression" (specifying type if possible) 5. "underweight with protein-calorie malnutrition [state mild, mod, or severe] with BMI 15.7, ____[?wt loss, ?appetite loss, ]" [if possible, give specifics on intake, wt loss, loss of SQ fat & muscle mass , diminished hand conveyor belt repairer strength, & clinical importance such as (A) nutritional assessment ordered, (B) modified diet or supplements ordered, (C) additional labs ordered, (D) prolonged wound healing time, (E) delayed infxn clearance] Thanks! CK
[2017-11-17 16:20] VITALS: BP 132/56
--- NOTE | 2017-11-17 16:36 | PDOC DISCHARGE SUMMARY ---
General - Admit/Disc Date/PCP Admission Date/Primary Care Provider: 11/15/17 17:44 OSCAR TAVAREZ MD Discharge Date: 11/17/17 - Discharge Diagnosis (1) Acute encephalopathy Is this a current diagnosis for this admission?: Yes - Additional Information Resuscitation Status: Do Not Resuscitate Discharge Diet: As Tolerated Discharge Activity: Activity As Tolerated, Balance Activity w/Rest Prescriptions: Acetaminophen [Tylenol 325 mg Tablet] 650 mg PO Q6HP PRN #60 tablet PRN Reason: For Pain Acetaminophen [Tylenol 325 mg Tablet] 650 mg PO Q6HP PRN 20 Days #30 tablet PRN Reason: For Pain Gabapentin [Neurontin 100 mg Capsule] 100 mg PO BID PRN #30 capsule PRN Reason: For Pain Nystatin [Mycostatin 500,000 Unit/5 ml Susp Udcup] 500,000 unit PO BID #2 udc Nystatin [Mycostatin Topical Powder 15 gm] 1 applic TP DAILY #2 bottle Home Medications: Amlodipine Besylate [Norvasc 5 mg Tablet] 5 mg PO BID 11/15/17 Atorvastatin Calcium [Lipitor 40 mg Tablet] 40 mg PO QHS 11/15/17 Levothyroxine Sodium [Synthroid 0.075 mg Tablet] 0.075 mg PO Q6AM 11/15/17 Megestrol Acetate 20 ml PO DAILY 11/15/17 Sertraline HCl [Zoloft 50 mg Tablet] 50 mg PO BID 11/15/17 Acetaminophen [Tylenol 325 mg Tablet] 650 mg PO Q6HP PRN #60 tablet 11/16/17 Cinacalcet HCl [Sensipar 60 mg Tablet] PO BID 11/16/17 Acetaminophen [Tylenol 325 mg Tablet] 650 mg PO Q6HP PRN 20 Days #30 tablet Gabapentin [Neurontin 100 mg Capsule] 100 mg PO BID PRN #30 capsule 11/17/17 Nystatin [Mycostatin 500,000 Unit/5 ml Susp Udcup] 500,000 unit PO BID #2 udc Nystatin [Mycostatin Topical Powder 15 gm] 1 applic TP DAILY #2 bottle 11/17/17 History of Present Illness History of Present Illness: BETTY ORTIZ is a 87 year old male with a past medical history of depression, hypertension, hyperlipidemia and remote history of early prostate cancer status post resection who was brought in because of confusion. Family is with patient in the room. Patient lives alone but does have a caregiver who visits him every day. Per patient's family members they have been in contact with the patient and he has been apparently finding in the said that they talk to him last night and patient did not have any acute complaints. Patient was coherent last night. However this morning, when the caregiver went to check on the patient he was noted to be lethargic and confused. He was barely arousable. Patient was brought into the emergency room. He was also noted to be a little lethargic and when patient was aroused he was confused and was agitated. Patient was given 1 dose of 1 mg of Ativan because of the agitation. Per patient's family patient was not able to recognize them. Family and thermite bomb loader denies that there was any concern for carbon monoxide poisoning or wood-burning at home. In the ER, patient reportedly had questionable seizure-like activity. Per patient's daughter, she says that she did to an engorged tick from the patient's neck 3-4 weeks ago. However in the interim, patient did not report a complain of any fever, chills, body malaise and has been on his baseline. Hospital Course Hospital Course: Mr. Ortiz is an 87-year-old male who was admitted for acute encephalopathy. An extensive workup for encephalopathy was on. CT and brain MRI were unremarkable for CVA. EEG was also unremarkable for epileptiform activities. Lumbar puncture was pursued and this was also unremarkable for infectious etiology. No concern for meningitis or encephalitis. Patient did slightly improved with Narcan. His UDS was positive only for morphine. 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 Patient does have a previous diagnosis of sleep apnea. On hospital day 2, patient had significant improvement of his mentation. Upon day of discharge patient is back to his baseline and was able 3. Discussed with patient and family that the patient's age, it is important that he avoids morphine or anticholinergic medications. Called patient's PCP who agreed with plan. Patient will be switched to Neurontin for his osteoarthritis related pain. Physical Exam Vital Signs: Temp Pulse Resp BP Pulse Ox 98.3 F 81 18 132/56 H 91 L 11/17/17 16:17 11/17/17 16:17 11/17/17 16:17 11/17/17 16:17 11/17/17 16:17 Intake & Output 11/16/17 11/17/17 11/18/17 06:59 06:59 06:59 Intake Total 100 2100 675 Output Total 1700 450 Balance 100 400 225 Weight 94 lb 5.725 oz General appearance: PRESENT: no acute distress, well-developed, well-nourished Head exam: PRESENT: atraumatic, normocephalic Eye exam: PRESENT: conjunctiva pink, EOMI, PERRLA. ABSENT: scleral icterus Mouth exam: PRESENT: moist, tongue midline Neck exam: ABSENT: carotid bruit, JVD, lymphadenopathy, thyromegaly Respiratory exam: PRESENT: clear to auscultation edson. ABSENT: rales, rhonchi, wheezes Pulses: PRESENT: normal dorsalis pedis pul GI/Abdominal exam: PRESENT: normal bowel sounds, soft. ABSENT: distended, guarding, mass, organolmegaly, rebound, tenderness Rectal exam: PRESENT: deferred Neurological exam: PRESENT: alert, awake, oriented to person, oriented to place , oriented to time, oriented to situation, CN II-XII grossly intact. ABSENT: motor sensory deficit Results Laboratory Results: 11/16/17 06:54 11/16/17 06:54 11/16/17 11:15 CSF Total Protein PEP Cancelled CSF Prealbumin Cancelled CSF Albumin Cancelled CSF [id number] Cancelled CSF [id number] Cancelled CSF Beta Globulin Cancelled CSF Gamma Globulin Cancelled CSF PEP M-Junaid Cancelled 11/15/17 11/16/17 19:44 04:55 Troponin I 0.039 0.084 Impressions: Chest X-Ray 11/15/17 09:55 IMPRESSION: No acute findings. Chronic faint reticulonodular change -greatest involvement right upper lung zone. Head CT 11/15/17 09:55 IMPRESSION: CHRONIC CHANGES OF ATROPHY AND MICROVASCULAR ISCHEMIA. NO ACUTE PROCESS. EVIDENCE OF ACUTE STROKE: NO. Head MRI 11/15/17 11:06 IMPRESSION: ATROPHY AND CHRONIC MICRO-VASCULAR ISCHEMIC CHANGES. OTHERWISE NORMAL MRI OF THE BRAIN WITHOUT INTRAVENOUS GADOLINIUM CONTRAST. EVIDENCE OF ACUTE STROKE: NO. Guidance Fluoroscopy 11/16/17 00:00 IMPRESSION: Lumbar puncture under fluoroscopy. No immediate complication. Lumbar Puncture 11/16/17 00:00 IMPRESSION: Lumbar puncture under fluoroscopy. No immediate complication. Qualifiers - * PATIENT BEING DISCHARGED WITH ANY OF THE FOLLOWING DIAGNOSIS: No
[2017-11-17] MEDS ORDERED: NYSTATIN 500000 UNIT/5 ML UDCUP PO SCH (20:00)
== END 2017-11-17 17:11 | disposition home health service (06) | DRG 92 ==
LOC: ER 09:12 → EH 17:44 → 3W 11-16 14:11
PROVIDERS: ADMIT Internal Medicine; ATTEND Internal Medicine
PROC: 009U3ZX Drainage of Spinal Canal, Percutaneous Approach, Diagnostic (ICD-10-PCS; principal; 2017-11-16)
PROC: B01BZZZ Fluoroscopy of Spinal Cord (ICD-10-PCS; 2017-11-16)
DX: G92 Toxic encephalopathy (principal); E46 Unspecified protein-calorie malnutrition; Z68.1 Body mass index [BMI] 19.9 or less, adult; F11.20 Opioid dependence, uncomplicated; T40.2X5A Adverse effect of other opioids, initial encounter; E03.9 Hypothyroidism, unspecified; Z66 Do not resuscitate; F32.9 Major depressive disorder, single episode, unspecified; I10 Essential (primary) hypertension; E78.00 Pure hypercholesterolemia, unspecified; M06.872 Other specified rheumatoid arthritis, left ankle and foot; M06.871 Other specified rheumatoid arthritis, right ankle and foot; M06.849 Other specified rheumatoid arthritis, unspecified hand; R40.2422 Glasgow coma scale score 9-12, at arrival to emergency department; M45.9 Ankylosing spondylitis of unspecified sites in spine; Z79.899 Other long term (current) drug therapy; Z85.46 Personal history of malignant neoplasm of prostate; Z90.79 Acquired absence of other genital organ(s)
CPT/HCPCS: 36415; 62270; 70450; 70551; 71045; 77003; 80048; 80053; 80307; 81001; 82550; 82553; 82803; 82945; 82962; 83605; 84146; 84157; 84166; 84443; 84484; 85025; 85610; 85730; 87040; 87070; 87205; 89050; 93005; 93010; 95819; G8978-GP; G8979-GP; J0696; J1644; J1953; J2060; J2310; J3370; J3490; J7030